=== PATIENT | male | born 1955 | race Caucasian/White ===

== ENCOUNTER 2025-01-16 00:19 | Day surgery (SDC) | payer MEDICARE, SELFPAY ==
[2025-01-08 09:21] VITALS: BMI 29.8
--- OUTSIDE RECORDS SUMMARY | 2025-01-16 00:22 | XMS_ITS | Encounter Summary ---
Author Organization [facility] Address [address] [place] [id number] Care Team Providers Care Rooming House Keeper Name Role Phone Madhavi Veloz DO Primary Care Provider Encounter Details Date Type Department Care Team (Late st Contact Info) Description 03/16/2012 Abstract [facility] Conversion Md, Generic Conversion, Social History Tobacco Use Types Packs/Day Years Used Date Smoking Tobacco: Never Assessed Sex and Gender Information Value Date Recorded Sex Assigned at Not on file Legal Sex Male 5:41 PM CDT Gender Identity Not on file Sexual Orientation Not on file documented as of this encounter Plan of Treatment Not on file documented as of this encounter Visit Diagnoses Not on filedocumented in this encounter Care Teams Rooming House Keeper Relationship Specialty Start Date End Date Madhavi Veloz DO PCP - General FAMILY PRACTICE 07/06/19 documented as of this encounter
--- OUTSIDE RECORDS SUMMARY | 2025-01-16 00:22 | XMS_ITS | Clinical Summary ---
Author Organization [facility] Address [facility] [place] [address] Care Team Providers Care Leather Sprayer Name Role Phone Madhavi Veloz Primary Care Provider Allergies Active Allergy Reactions Criticality Noted Date Comments Lidocaine Syncope 03/01/2012 Pt report high doses of lidocaine cause him to pass out. Medications dorzolamide 2 % ophthalmic solution INSTILL 1 DROP INTO BOTH EYES 3 TIMES A DAY DIRECTED 3 9 Active tamsulosin 0.4 MG Cap TAKE 1 CAPSULE BY ORAL ROUTE EVERY DAY 1/2 HOUR FOLLOWING THE SAME MEAL EACH DAY 1 9 Active polyethylene glycol packet Take 17 g by mouth 2 (two) times daily. Dissolve powder in 240 mL water Active Na sulfate-K sulfate-Mg sulfate (SUPREP BOWEL PREP KIT) 17.5-3.13-1.6 GM/177ML SolutionIndicat ions:Screening for colon cancer,BRBPR (bright red blood per rectum) Take 177 mLs by mouth every 12 (twelve) hours. Take as directed in the instructions 2 Bottle 9 Active Na sulfate-K sulfate-Mg sulfate (SUPREP BOWEL PREP KIT) 17.5-3.13-1.6 GM/177ML SolutionIndicat ions:Screening for colon cancer Take 177 mLs by mouth every 12 (twelve) hours. Take as directed in the instructions 2 Bottle 9 Active Active Problems Problem Noted Date Diagnosed Date Bilateral hip pain 07/27/2024 Immunizations Name Administration Dates Next Due Tdap (Adacel) 09/11/2021 Family History Medical History Relation Comments None Father None Mother Relation Status Comments Father Alive Mother Alive Social History Tobacco Use Types Packs/Day Years Used Date Smoking Tobacco: Never Smokeless Tobacco: Never Alcohol Use Standard Drinks/Week Comments Yes 0 (1 standard drink = 0.6 oz pur e alcohol) occasionally Sex and Gender Information Value Date Recorded Sex Assigned at Not on file Legal Sex Male 5:41 PM CDT Gender Identity Not on file Sexual Orientation Not on file Last Filed Vital Signs Vital Sign Reading Time Taken Comments Blood Pressure 160/92 09/11/2021 4:29 PM CARBON PRINTER Pulse 98 09/11/2021 4:29 PM CARBON PRINTER Temperature 36.6 C (97.8 F) 09/11/2021 4:29 PM [employer] PRINTER Respiratory Rate 18 09/11/2021 4:29 PM [employer] PRINTER Oxygen Saturation 98% 09/11/2021 4:29 PM [employer] PRINTER Inhaled Oxygen Concentration - - Weight 95.3 kg (210 lb) 09/11/2021 4:24 PM CAR[employer]ON PR[employer] Height 175.3 cm (5' 9 ) 09/11/2021 4:24 PM [employer] Body Mass Index 31.01 09/11/2021 4:24 PM CARBON PRINTER Plan of Treatment Health Maintenance Due Date Last Done Comments Hepatitis C 12/18/1971 Zoster Vaccines (1 of 2) 12/18/2003 Annual Medicare Wellness Visit 2018 Pneumococcal Vaccine: 65+ Years (1 of 1 - PCV) 2018 COVID-19 Vaccine (3 - 2023-2 5 season) 2024 02/09/2021, 01/12/2021 Influenza Adult (#1) 2024 RSV Immunization or 60+ Years (1 - 1-dose 75+ series) 2028 Colorectal Cancer Screening Colonoscopy (10 Years) 11/09/2029 11/09/2019 DTaP, Tdap and Td Vaccines ( 2 - Td or Tdap) 09/11/2031 09/11/2021 Meningococcal B Vaccine Aged Out No l onger eligible based on patient's age to complete this topic Meningococcal Vaccine Aged Out No kirit fany eligible based on patient's age to complete this topic RSV Immunizations Under 20 Months Aged Out No longer eligible b ased on patient's age to complete this topic Procedures Procedure Name Priority Date/Time Associated Diagnosis Comments COLONOSCOPY/EGD GENERIC (SCAN ORDER) Routine 11/09/2019 12:22 PM CARBON PRINTER from Last 3 Months or Most Recently Relevant to Health Maintenance Results * COLONOSCOPY/EGD (11/09/2019 12:22 PM CARBON PRINTER) us Documents Scanned SCANNING Edited Result - Final from Last 3 Months or Most Recently Relevant to Health Maintenance Insurance [employer] MEDICARE [facility] Advance Directives Documents on File Type Date Recorded Patient Material Damage Adjuster Expl anation Advance Directives and Living Will 10/23/2019 12:00 AM [employer]IV[employer] Care Teams Leather Sprayer Relationship Specialty Start Date End Date Madhavi Veloz DO PCP - General FAMILY PRACTICE 07/06/19
--- OUTSIDE RECORDS SUMMARY | 2025-01-16 00:22 | XMS_ITS | Encounter Summary ---
Author Organization [facility] Address [address] [place] [id number] Care Team Providers Care Wind Turbine Sheet Metal Worker Name Role Phone Madhavi Veloz DO Primary Care Provider [phone] Encounter Details Date Type Department Care Team (Late st Contact Info) Description 03/02/2012 Abstract [facility] Conversion Md, Generic Conversion, Social History [...] on filedocumented in this encounter Care Teams Wind Turbine Sheet Metal Worker Relationship Specialty Start Date End Date Madhavi Veloz DO PCP - General FAMILY PRACTICE 07/06/19 documented as of this encounter
[2025-01-16 12:40] VITALS: BP 153/101; PULSE 93; RESP 20; TEMP 35.7; O2SAT 98; BMI 29.5
[2025-01-16] MEDS: LACTATED RINGERS 1,000 ML 150 ML IV CONT (12:55)
--- NOTE | 2025-01-16 13:13 | P.PNAN_ITS ---
Anes - Initial Pre Proc Eval Procedure: Operation Date: 01/16/25 14:00 Proposed Procedures p Colonoscopy - Ramesh Reese MD s [facility] Hemorrhoid Treatment - Ramesh Reese MD Date/Time: 01/16/25 13:13 Surgeon: Ramesh Reese MD Pre Op Diagnosis: change in bowel habits,hemorrhoids Patient Data Age: 69 Gender: M Height: 1.75 m Weight: 90.7 kg Last Vital Signs Temp 35.7 C L 01/16/25 12:40 Pulse 93 01/16/25 12:40 Resp 20 01/16/25 12:40 BP 153/101 H 01/16/25 12:40 Pulse Ox 98 01/16/25 12:40 O2 Del Method Room Air 01/16/25 12:40 Allergies Allergy/AdvReac Type Severity Reaction Status Date / Time lidocaine Allergy Unknown pass out Verified 01/16/25 12:45 Home Medications ?Medication ?Instructions ?Recorded ?Confirmed ?Type multivitamin 1 tablet PO DAILY 02/03/23 01/16/25 History tamsulosin 0.4 mg capsule 0.4 mg PO DAILY #90 caps 02/14/24 01/16/25 Rx hydrocortisone acetate 25 mg 25 mg RECTAL BID #20 ea 11/27/24 01/16/25 Rx rectal suppository (Anusol-HC) losartan 25 mg tablet 37.5 mg (1.5 x 25 mg) PO DAILY #90 12/25/24 Rx tabs meloxicam 15 mg tablet 15 mg PO DAILY #90 tabs 01/10/25 01/16/25 Rx amlodipine 5 mg tablet 5 mg PO DAILY #90 tabs 01/15/25 01/16/25 Rx Patient hx anesthesia problems: none Family hx anesthesia problems: none Results Review: All pre-operative results and documents have been reviewed as part of the pre- operative evaluation. [facility] Past Medical History Medical History Hypertension Elevated serum creatinine Enlarged prostate Hyperlipidemia Retinal tear of right eye Surgical History Surgical History Acute cataract both eyes 2019 Social History Social History (Reviewed 01/16/25 @ 13:13 by TANA Obando Smoking packs per day: 1 Smoking cigarettes per day: 20.0 Years smoked: 20 Smoking pack-years: 20.00 Smoking status: Former smoker Tobacco type: cigarettes Second hand tobacco smoke exposure: No Alcohol intake: current Drinks per week: 2 Substance use: current Substance use type: marijuana Last use: 01/07/25 Living arrangements: with family Occupation/Education: retired Gender identity (if verbalized by the patient): Male Spiritual care concerns: No Anes - Eval Final PreProcedure Day of Procedure 01/16/25 13:13 Patient weight: overweight Heart: regular rate and rhythm Lungs: clear to auscultation Airway: Mallampati scale class 1 Neurological: alert and oriented Last oral intake: >/= 8 hours ASA classification: III Emergent: no Anesthetic plan: proceed Anesthesia type and monitoring: general GIVS and standard monitoring Results Review: All pre-operative results and documents have been reviewed as part of the pre- operative evaluation. Informed Consent: The patient's anesthetic plan and its attendant risks and benefits were discussed with the patient/family/POA. Questions were solicited and answers provided to the satisfaction of the patient/family/POA.
--- NOTE | 2025-01-16 13:16 | PM.HPGS ---
History of Present Illness History of Present Illness Consent: Risks, benefits, and alternatives have been discussed and questions answered. Patient agrees to proceed with procedure. Chief complaint: change in bowel habits,hemorrhoids Narrative: Higinio Grigsby is a 69 year old male here for colonoscopy, last one 2019, had intermittent blood in stool but resolved after topical hemorrhoidal treatment Review of Systems Review of Systems: All systems reviewed & are unremarkable except as noted in HPI and below PMFSH Past Medical History Medical History (Updated 01/16/25 @ 13:17 by Ramesh Reese MD) Colon cancer screening Hypertension Elevated serum creatinine Enlarged prostate Hyperlipidemia Retinal tear of right eye Surgical History Surgical History Acute cataract both eyes 2018 Social History Social History Smoking packs per day: 1 Smoking cigarettes per day: 20.0 Years smoked: 20 Smoking pack-years: 20.00 Smoking status: Former smoker Tobacco type: cigarettes Second hand tobacco smoke exposure: No Alcohol intake: current Drinks per week: 2 Substance use: current Substance use type: marijuana Last use: 01/07/25 Living arrangements: with family Occupation/Education: retired Gender identity (if verbalized by the patient): Male Spiritual care concerns: No Meds Home Medications and Allergies Home Medications ?Medication ?Instructions ?Recorded ?Confirmed ?Type multivitamin 1 tablet PO DAILY 02/03/23 01/16/25 History tamsulosin 0.4 mg capsule 0.4 mg PO DAILY #90 caps 02/14/24 01/16/25 Rx hydrocortisone acetate 25 mg 25 mg RECTAL BID #20 ea 11/27/24 01/16/25 Rx rectal suppository (Anusol-HC) losartan 25 mg tablet 37.5 mg (1.5 x 25 mg) PO DAILY #90 12/25/24 Rx tabs meloxicam 15 mg tablet 15 mg PO DAILY #90 tabs 01/10/25 01/16/25 Rx amlodipine 5 mg tablet 5 mg PO DAILY #90 tabs 01/15/25 01/16/25 Rx Allergies Allergy/AdvReac Type Severity Reaction Status Date / Time lidocaine Allergy Unknown pass out Verified 01/16/25 12:45 Vital Signs Vital Signs - 24 hr 01/16/25 12:40 Temperature 96.2 F L Pulse Rate 93 Respiratory Rate 20 Blood Pressure 153/101 H Pulse Oximetry 98 Oxygen Delivery Room Air Exam Const: General: comfortable and no acute distress HENMT: Face/Nose/Sinus: Normal nares present Eyes: General: appearance normal, both eyes and all related structures Neck: Neck: no JVD Resp: Auscultation: clear to auscultation bilaterally Cardio: Rate: regular rate Rhythm: regular rhythm GI: Inspection: non-distended GI Palp: Yes Soft to palpation Skin: General skin exam: normal color Neuro: General: gait normal Speech: normal speech Extrem: General: normal to inspection Psych: Mental Status: mental status grossly normal Assessment and Plan Assessment and plan (1) Bright red blood per rectum: Code(s): K62.5 - Hemorrhage of anus and rectum Status: Acute Assessment and Plan: colonoscopy if large internal hemorrhoids then we can treat with irc (2) Colon cancer screening: Code(s): Z12.11 - Encounter for screening for malignant neoplasm of colon Status: Acute
[2025-01-16 13:32] VITALS: BP 137/84; PULSE 85; RESP 18; O2SAT 94
--- NOTE | 2025-01-16 13:32 | W.PM.PROC2 ---
Procedure Note - Detailed Date of Procedure 01/16/25 Pre-op Diagnosis hemorrhoids Post-op Diagnosis Same Procedure Performed irc of internal hemorrhoids Surgeon Ramesh Reese MD Anesthesia MAC (also had colonoscopy) Findings medium size internal hemorrhoids, no bleeding Description of Procedure with anoscope noted medium size hemorrhoids, then introduced IRC probe and hemorrhoids treated for 1.5 seconds x6
[2025-01-16 13:42] VITALS: BP 109/77; PULSE 97; RESP 20; O2SAT 97
[2025-01-16 13:52] VITALS: BP 112/80; PULSE 87; RESP 21; O2SAT 98
== END 2025-01-16 14:03 | disposition home or self-care (01) ==
PROVIDERS: PCP Nurse Practitioner Family; Referring Provider Nurse Practitioner; Visit Provider Internal Medicine Gastroenterology
PROC: 0DJD8ZZ Inspection of Lower Intestinal Tract, Via Natural or Artificial Opening Endoscopic (ICD-10-PCS; CPT 45378; principal; 2025-01-16 14:00)
PROC: (CPT 46930; 2025-01-16 14:00)
DX: Z12.11 Encounter for screening for malignant neoplasm of colon (principal); D12.2 Benign neoplasm of ascending colon; K64.8 Other hemorrhoids; I10 Essential (primary) hypertension; E78.5 Hyperlipidemia, unspecified; F12.90 Cannabis use, unspecified, uncomplicated; Z98.890 Other specified postprocedural states; Z87.891 Personal history of nicotine dependence
CPT/HCPCS: 45385; 46930; 88305; J2704; J7120